=== PATIENT | female | born 1990 | race Caucasian/White ===

== ENCOUNTER 2018-10-26 10:07 | Outpatient (CLI) | payer OTHER ==
--- NOTE | 2018-10-26 10:32 | RAD ---
XR Chest Pa Lat STANDARD HISTORY: Cough COMPARISON: None FINDINGS: The heart size is normal. The lungs are well expanded without focal areas of consolidation, pneumothorax or pleural effusions. IMPRESSION: No radiographic evidence of acute cardiopulmonary process.
== END 2018-10-26 10:08 | disposition home or self-care (01) ==
LOC: BICRAD 10:07
PROVIDERS: ATTEND Family Medicine
DX: R05 Cough (principal)
CPT/HCPCS: 71046

== ENCOUNTER 2019-02-21 13:23 | Outpatient (CLI) | payer BC ==
--- NOTE | 2019-02-21 14:12 | ULT ---
TRANSABDOMINAL PELVIC ULTRASOUND: 02/21/19 TECHNIQUE: Cruz scale, color flow and spectral Doppler imaging. HISTORY: 28-year-old female with irregular menses. FINDINGS: The uterus measures 8.7 x 4 x 3.7 cm without focal mass or endometrial fluid. Endometrium measures 3 mm in thickness. The right ovary measures 3.3 x 3.3 x 2.1 cm and the left ovary measures 3.0 x 2.9 x 2.4 cm. Flow is d emonstrated to both ovaries. No adnexal mass or free fluid in the cul-de-sac is seen. IMPRESSION: Normal exam. POS: OFF
== END 2019-02-21 13:24 | disposition home or self-care (01) ==
LOC: BICULT 13:23
PROVIDERS: ATTEND Advanced Practice Midwife
DX: R10.2 Pelvic and perineal pain (principal)
CPT/HCPCS: 76856

== ENCOUNTER 2023-05-16 11:23 | Outpatient (CLI) | payer BC | END 2023-05-16 11:24 | disposition home or self-care (01) | LOC: BICRAD 11:23 | PROVIDERS: ATTEND Family Medicine | DX: M54.50 Low back pain, unspecified (principal); M54.6 Pain in thoracic spine; M41.86 Other forms of scoliosis, lumbar region | CPT/HCPCS: 72070; 72100 ==